=== PATIENT | female | born 1975 | race American Indian/Alaskan Native ===

== ENCOUNTER 2021-09-23 08:14 | Day surgery (SDC) | payer BC, OTHER ==
[2021-09-19 13:02] LABS: Hematocrit 25.8 % (30.3-42.9); Hemoglobin 7.8 gm/dl (10.1-14.3); Mean Corpuscular HGB Conc 30 % (30-34); Platelet Count 579 K/mm3 (140-440); Red Blood Count 3.91 M/mm3 (3.65-5.03)
[2021-09-19 14:07] LABS: Mean Corpuscular Volume 66 fl (79-97); Red Cell Distribution Width 29.3 % (13.2-15.2)
--- NOTE | 2021-09-21 16:37 | Short Stay Summary ---
Short Stay Documentation Date of service: 09/23/21 Narrative H&P: This is a 46 years old female who presents with menstrual disorder. She complains of irregular menses, heavy bleeding, clotting and history of fibroids. Menstrual flow lasts > 7 days. She states she has been bleeding as such since 11/2020. She received 1uPRBC 09/09/2021 for severe anemia. She continues to bleed heavy with only ~3 days/month when she does not bleed. Her evaluation reveals a large prolapsed fibroid Past History : 2 Term Births: 2 Living Children: 2 # 1 Delivery date: 1996 Comments: [id number] [employer] History Operations: Cholecystectomy Abnormal PAP: negative Infection History HIV Risk Eval: no Personal hx. of genital herpes: yes Hx of STD: HSV Active Medications: MULTIVITAMINS ORAL CAPSULE (MULTIPLE VITAMIN) MIRENA (52 MG) INTRAUTERINE DEVICE (LEVONORGESTREL IUD) Current Allergies (reviewed today): No known allergies Past Medical History: Environmental allergies: trees, mold, pet dander Anemia Past Surgical History: Cholecystectomy Family History Summary: Reviewed history Last on 09/11/2021 and no changes required:09/21/2021 Other Family Member - Has No Family History of Uterine Cancer - Entered On: 04/09/2019 Other Family Member - Has No Family History of Small Bowel Cancer - Entered On: 04/09/2019 Other Family Member - Has No Family History of Stomach Cancer - Entered On: 04/09/2019 Other Family Member - Has No Family History of Pancreatic Cancer - Entered On: 04/09/2019 Other Family Member - Has No Family History of Ovarvian Cancer - Entered On: 04/09/2019 Other Family Member - Has No Family History of Kidney/Urinary Tract Cancer - Entered On: 04/09/2019 Other Family Member - Has No Family History of Spontaneous DVT-PE - Entered On: 04/09/2019 Other Family Member - Has No Family History of Colon Cancer - Entered On: 04/09/2019 Other Family Member - Has No Family History of Brain Cancer - Entered On: 04/09/2019 Other Family Member - Has No Family History of Breast Cancer - Entered On: 04/09/2019 Other Family Member - Has No Family History of Biliary Tract Cancer - Entered On: 04/09/2019 General Comments - FH: No Family History of Breast Cancer No Family History of Colon Cancer No Family History of Ovarvian Cancer No Family History of DVT/PE on OCP Social History: Reviewed history from 04/07/2019 and no changes required: Patient is Smoking History: Patient has never smoked. Risk Factors: Smoked Tobacco Use: Never smoker Smokeless Tobacco Use: Never Passive Smoke Exposure: no HIV High Risk Behavior: no Exercise: no Seatbelt Use: 100 % Alcohol Use: yes Type: OCC Drinks per day: social Drug Use: no Previous Tobacco Use: Signed On 09/11/2021 Smoked Tobacco Use: Never smoker Smokeless Tobacco Use: Never Passive Smoke Exposure: no HIV High Risk Behavior: no Exercise: no Seatbelt Use: 100 % Alcohol Use: yes Type: OCC Drinks per day: social Drug Use: no Physical Exam Appearance: well developed, well nourished, no acute distress Other Exams Lungs: no rales, rhonchi, or wheezes Heart: S1, S2, no murmur, rub, or gallop Impression & Recommendations: Problem # 1: Fibroids of uterus, Submucosal (ICD-218.0) (AEO20-D48.0) Prolapsed fibroid, she presents now for removal of prolapsed fibroid, hysteroscopy with uterine curettage .aoip Consent reviewed and signed . Possible laparoscopy or laparotomy explained to patient. The risks and alternatives for this surgery were reviewed with the patient. She was informed of possible bleeding, infection, injury to bowel, bladder, ureters or other adjacent organs. The patient was instructed/informed the following: The normal length of hospital stay for this procedure. Nothing to eat or drink after midnight the evening prior to surgery. Pre-op instruction sheets given. Infection precautions reviewed, patient to call for any signs or symptoms of infection. The usual discomforts associated with this procedure were detailed. Proper use of pain medicines was reviewed. Patient was given ample opportunity to have all her questions answered before signing informed consent. 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 H&P has been reviewed. No interval changes. - Allergies and Medications Current Medications: Allergies tree nut Allergy (Verified 09/16/21 16:29) Anaphylaxis Home Medications Medication Instructions Recorded Confirmed Last Taken Type Multivitamin [Multiple Vitamins] 1 each PO DAILY 09/16/21 09/16/21 Unknown History Active Medications Cefazolin Sodium (Ancef/Sterile Water 2 Gm/20 Ml) 2 gm in 20 mls @ 80 mls/hr IV PREOP NR; Protocol - Brief post op/procedure progress note Date of procedure: 09/23/21 Pre-op diagnosis: Menometrorrhagia, anemia, prolapse fibroid, IUD Post-op diagnosis: other (Menometrorrhagia, anemia, prolapse fibroid) Procedure: Operative hysteroscopy with myomectomy uterine curettage Anesthesia: MAC Findings: Approximately 2 cm prolapsed uterine fibroid grossly normal uterine cavity no IUD was visualized Surgeon: NESTOR JARAMILLO Estimated blood loss: minimal Pathology: list (Fibroid and endometrial tissue) Specimen disposition: to lab Condition: stable - Hospital course Hospital course: Normal - Disposition Condition at discharge: Good Disposition: 01 HOME / SELF CARE / HOMELESS - Discharge Diagnoses (1) Excessive and frequent menstruation with irregular cycle Status: Acute (2) Fibroid Status: Acute (3) Anemia Status: Acute Short Stay Discharge Plan Activity: other (No sex. Ambulate frequently.) Weight Bearing Status: Full Weight Bearing Diet: regular (Eat small meals frequently. Avoid spicy high-fat high sodium foods. Drink approximately 100 ounces of water a day and void every 1-2 hours) Special Instructions: no heavy lifting (Greater than 25 pound) Follow up with: TAVO MCKAY MD [Primary Care Provider] - 7 Days NESTOR JARAMILLO MD [Staff Physician] - (As scheduled)
[~2021-09-23 08:14] MED LIST: ceFAZolin/Water 2 GM/20 ML 2 GM/20 ML SYRINGE IV NR
[2021-09-23] MEDS ORDERED: MAGNESIUM OXIDE 400 MG TAB PO NR (08:46)
[2021-09-23] MEDS ORDERED: ACETAMINOPHEN 500 MG TAB PO NR (08:46)
[2021-09-23] MEDS ORDERED: ONDANSETRON 4 MG/2 ML INJ IV PRN (08:47)
[2021-09-23] MEDS ORDERED: HYDROmorphone 1 MG/1 ML INJ IV PRN ×2 (08:47)
--- NOTE | 2021-09-23 08:48 | Anesthesia Day of Surgery ---
Anesthesia Day of Surgery - Day of Surgery Patient Examined: Yes Patient H&P Reviewed: Yes Patient is NPO: Yes
--- NOTE | 2021-09-23 08:49 | Anesthesia Consultation ---
Anesthesia Consult and Med Hx Date of service: 09/23/21 - Airway Anesthetic Teeth Evaluation: Chipped, Crowns ROM Head & Neck: Adequate Mental/Hyoid Distance: Adequate Mallampati Class: Class I Intubation Access Assessment: Good - Pre-Operative Health Status ASA Pre-Surgery Classification: ASA2 Proposed Anesthetic Plan: General - Pulmonary Hx Smoking: No Hx Sleep Apnea: No - Central Nervous System Hx Psychiatric Problems: No - Gastrointestinal Hx Gastroesophageal Reflux Disease: Yes (Heartburn when eats tomatoes before bed) - Hematic Hx Anemia: Yes (7.8/25.8) Hx Sickle Cell Disease: No - Other Systems Hx Alcohol Use: Yes (Occas) Hx Cancer: No Hx Obesity: Yes - Additional Comments Anesthesia Medical History Comments: Got one [facility] [id number]
[2021-09-23] MEDS ORDERED: LACTATED RINGERS 1,000 ML IV SCH (09:00)
[2021-09-23] MEDS ORDERED: MIDAZOLAM 2 MG/2 ML INJ IV NR (09:00)
[2021-09-23] MEDS ORDERED: CELECOXIB 200 MG CAP PO NR (09:00)
[2021-09-23] MEDS ORDERED: propofoL 200 MG/20 ML VIAL IV ONE (11:56)
[2021-09-23] MEDS ORDERED: HYDROmorphone 1 MG/1 ML INJ ONE (11:56)
[2021-09-23] MEDS ORDERED: LIDOCAINE MPF (2%) 20 MG/1 ML VIAL 5 ML ONE (11:56)
[2021-09-23] MEDS ORDERED: dexAMETHasone 20 MG/5 ML VIAL ONE (13:12)
[2021-09-23] MEDS ORDERED: FERRIC SUBSULFATE TOPICAL SOLN 8 ML TP ONE ×2 (13:42→13:44)
[2021-09-23] MEDS ORDERED: ONDANSETRON 4 MG/2 ML INJ ONE (13:42)
[2021-09-23] MEDS ORDERED: SODIUM CHLORIDE 0.9% IRRIG SOLN 2000 ML IR ONE (13:44)
[2021-09-23] MEDS ORDERED: KETOROLAC 30 MG/1 ML INJ ONE (14:06)
--- NOTE | 2021-09-23 14:33 | Operative Report ---
Operative Report Operative Report: Date: 09/23/2021 PREOPERATIVE DIAGNOSES: 1. Menometrorrhagia 2. Prolapsed uterine fibroid 3. Anemia 4. Body mass index 33.4 kg/m 5. IUD to be removed POSTOPERATIVE DIAGNOSES: 1. Menometrorrhagia 2. Prolapsed uterine fibroid 3. Anemia 4. Body mass index 33.4 kg/m 5. No IUD visualized in the uterine cavity PROCEDURE PERFORMED: 1. Operative hysteroscopy. 2. Uterine curettage (D&C) 3. Myomectomy ANESTHESIA: [] ESTIMATED BLOOD LOSS: Less than minimal cc. INDICATIONS: This is a 46-year-old female that presents above diagnoses. PROCEDURE: The patient was seen in the preoperative suite. Expected procedure and postoperative course discussed with her. She was taken to the operative suit e where MAC was performed. She was placed in a dorsal lithotomy position. . A bimanual exam was done, the uterus was found to be 12 weeks. She was prepped and draped in the normal sterile fashion. Timeout was performed. Her bladder was drained with the red Wtaers catheter which produced approximately 50 cc of clear yellow urine. The cervix and vagina were grossly normal with no obvious masses or deformities. A bivalve operative speculum was placed in the vagina and the anterior lip of the cervix was grasped with the ring forcep. The uterus was sounded to ~8 cm. An approximately 2 cm prolapsed fibroid was noted protruding from the cervix. The fibroid was grasped with a ring forcep and twisted off at its base and sent to pathology. The cervix was found to be approximately 1 cm dilated. Operative hysteroscope was introduced. Under direct visualization, the ostia were within normal limits. The endometrial lining appeared thin, however, there was no obvious evidence of malignancy. No evidence of an IUD was noted the hysteroscope was removed and a small sharp curette was placed intrauterine very carefully using anterior wall for guidance. Endometrial curettings were obtained. The hysteroscope was reintroduced and the base of the removed fibroid was excised with the MyoSure device. Bleeding from the base occurred after excision that was made hemostatic with Monsel solution. The endometrial sampling was placed on Telfa pad and sent to Pathology for evaluation, permanent. The hysteroscope was introduced again, no evidence of perforation was noted. At this point procedure was ended. The ring forcep and speculum were removed. The cervix was found to be hemostatic. Counts were correct. Patient was taken to the PACU stable. Distention fluid: Normal saline Deficit: 50 mL
[2021-09-23 15:03] VITALS: BP 119/75
--- NOTE | 2021-09-23 17:12 | Post Anesthesia Evaluation ---
- Post Anesthesia Evaluation Patient Participated: Yes Airway Patent: Yes Stable Respiratory Function: Yes Nausea/Vomiting: No Temp > 96.8F: Yes Pain Manageable: Yes Adequeate Hydration: Yes Anesthesia Complications: No Block Receding Appropriately: Not Applicable Patient on Ventilator: No
== END 2021-09-23 15:30 | disposition home or self-care (01) ==
LOC: OR 08:14
PROVIDERS: ATTEND Obstetrics & Gynecology
DX: N92.1 Excessive and frequent menstruation with irregular cycle (principal); Z20.822 Contact with and (suspected) exposure to COVID-19; D64.9 Anemia, unspecified
CPT/HCPCS: 36415; 58558; 81025; 85027; 88305; C1782; J0690; J1100; J1170; J1885; J2250; J2405; J2704; J3490; J7120; U0003

== ENCOUNTER 2021-12-09 07:18 | Observation (INO) | payer BC ==
[2021-12-03 12:57] LABS: Mean Corpuscular HGB Conc 30 % (30-34); Platelet Count 562 K/mm3 (140-440); Red Blood Count 4.23 M/mm3 (3.65-5.03)
[2021-12-03 12:58] LABS: Hematocrit 28.7 % (30.3-42.9); Hemoglobin 8.5 gm/dl (10.1-14.3); Mean Corpuscular Volume 68 fl (79-97); Red Cell Distribution Width 20.6 % (13.2-15.2)
[2021-12-03 14:37] LABS: Basophils % (Manual) 0 % (0.0-1.8); Total Cells Counted 100
[2021-12-03 14:38] LABS: Anisocytosis 1+; Hypochromasia 2+; Ovalocytes 1+; Platelet Estimate Consistent w Auto; Poikilocytosis 1+
--- NOTE | 2021-12-08 08:40 | History and Physical Report ---
History of Present Illness Date of examination: 12/03/21 Chief complaint: Excessive and frequent menstruation with irregular cycle, fibroids, anemia History of present illness: This is a 46 years old female who presents with menstrual disorder. She complains of irregular menses, heavy bleeding, clotting and history of fibroids. Menstrual flow lasts > 7 days. She states she has been bleeding as such since 11/2020. She received 1uPRBC 09/09/2021 for severe anemia. She continues to bleed heavy with only ~3 days/month when she does not bleed. Menstrual History: LMP (date): 11/25/2021 Current Method of Contraception: OCP Past History : 2 Term Births: 2 Living Children: 2 # 1 Delivery date: 1996 Comments: svdx2 [employer] History Operations: Cholecystectomy D&C: (09/23/2021) Hysteroscopy:myomectomy(09/23/2021) Abnormal PAP: negative Infection History HIV Risk Eval: no Personal hx. of genital herpes: yes Hx of STD: HSV Active Medications (reviewed today): levonorgestrel-ethinyl estrad 0.1-20 mg-mcg tablet (levonorgestrel-ethinyl es trad) Take 1 tablet once a day multivitamin tablet (multivitamin) Current Allergies (reviewed today): No known allergies Past Medical History: Reviewed history from 10/01/2021 and no changes required: Environmental allergies: trees, mold, pet dander Anemia Past Surgical History: Reviewed and updated today: Cholecystectomy D&C: (09/23/2021) Hysteroscopy:myomectomy(09/23/2021) Family History Summary: Reviewed history Last on 09/19/2021 and no changes required:12/08/2021 Other Family Member - Has No Family History of Uterine Cancer - Entered On: 04/09 Other Family Member - Has No Family History of Small Bowel Cancer - Entered On: 04/09/2019 Other Family Member - Has No Family History of Stomach Cancer - Entered On: 04/09/2019 Other Family Member - Has No Family History of Pancreatic Cancer - Entered On: 04/09/2019 Other Family Member - Has No Family History of Ovarvian Cancer - Entered On: 04/09/2019 Other Family Member - Has No Family History of Kidney/Urinary Tract Cancer - Entered On: 04/09/2019 Other Family Member - Has No Family History of Spontaneous DVT-PE - Entered On: 04/09/2019 Other Family Member - Has No Family History of Colon Cancer - Entered On: 04/09/2019 Other Family Member - Has No Family History of Brain Cancer - Entered On: 04/09/2019 Other Family Member - Has No Family History of Breast Cancer - Entered On: 04/09/2019 Other Family Member - Has No Family History of Biliary Tract Cancer - Entered On: 04/09/2019 General Comments - FH: No Family History of Breast Cancer No Family History of Colon Cancer No Family History of Ovarvian Cancer No Family History of DVT/PE on OCP Social History: Reviewed history from 04/07/2019 and no changes required: Patient is Smoking History: Patient has never smoked. Risk Factors: Smoked Tobacco Use: Never smoker Smokeless Tobacco Use: Never Passive Smoke Exposure: no HIV High Risk Behavior: no Exercise: no Seatbelt Use: 100 % Alcohol Use: yes Type: OCC Drinks per day: social Drug Use: no Previous Tobacco Use: Signed On - 10/08/2021 Smoked Tobacco Use: Never smoker Smokeless Tobacco Use: Never Passive Smoke Exposure: no HIV High Risk Behavior: no Exercise: no Seatbelt Use: 100 % Alcohol Use: yes Type: OCC Drinks per day: social Drug Use: no Physical Exam Appearance: well developed, well nourished, no acute distress Other Exams Lungs: no rales, rhonchi, or wheezes Heart: S1, S2, no murmur, rub, or gallop Impression & Recommendations: Problem # 1: Fibroids of uterus, Submucosal (ICD-218.0) (ZSQ86-R52.0) Her updated medication list for this problem includes: Levonorgestrel-ethinyl Estrad 0.1-20 Mg-mcg Tablet (Levonorgestrel-ethinyl estrad) ..... Take 1 tablet once a day Diagnosis explained to patient . Discussed with patient various medical, surgical and radiological therapies common for treatment including, but not limited to, myomectomy, hysterectomy and uterine artery embolization. Discussed risks and benefits of laparotomy, laparoscopy, vaginal and robotic assisted approaches for hysterectomies. Patient desires definitive treatment in the form of robot assisted laparoscopic total hysterectomy. The risks and alternatives for this surgery were reviewed with the patient. She was informed of the risks of the surgery including, but not limited to, pain, infection, bleeding possibly heavy enough to require a blood transfusion with associated risks of infections (hepatitis and HIV) and transfusion reactions, possible damage to bowel, bladder or ureter(s) and surrounding organs. She was also informed of slight increased risk for vaginal cuff breakdown with the robotic approach. Patient understands that this surgery will make her sterile. Indic ations to abort a robotic/laparoscopic procedure and perform an open procedure were explained.She desires ovarian conservation. She was informed she may require surgery later to have her ovaries removed for a benign or malignant condition. Patient understands if her ovaries are removed she will become menopausal. Patient advised the small risks of spreading of malignancy if morcellation is required during the surgery patient understands and approves performing if necessary. Questions answered. Consent reviewed and signed The patient was instructed/informed the following: The normal length of hospital stay for this procedure. Nothing to eat or drink after midnight the evening prior to surgery.. Pre-op instruction sheets given. Wound care instructions given. Problem # 2: Excessive and frequent menstruation with irregular cycle (ICD- 626.6) (OIH47-G77.1) Her updated medication list for this problem includes: Levonorgestrel-ethinyl Estrad 0.1-20 Mg-mcg Tablet (Levonorgestrel-ethinyl estrad) ..... Take 1 tablet once a day Multivitamin Tablet (Multivitamin) Problem # 3: Anemia secondary to blood loss (chronic) (ICD-280.0) (YTH45-V18.0) Medications and Allergies Allergies Allergy/AdvReac Type Severity Reaction Status Date / Time tree nut Allergy Severe Anaphylaxis Verified 12/01/21 13:04 MOLE AdvReac Severe Anaphylaxis Uncoded 12/01/21 13:04 PET DANDER AdvReac Severe Anaphylaxis Uncoded 12/01/21 13:04 Home Medications Medication Instructions Recorded Confirmed Last Taken Type No Known Home Medications [No 12/01/21 12/01/21 Unknown History Reported Home Medications] Active Meds: Active Medications Acetaminophen (Acetaminophen 500 Mg Tab) 1,000 mg PO ONCE ONE Stop: 12/09/21 06:01 Celecoxib (Celecoxib 200 Mg Cap) 200 mg PO PREOP NR Stop: 12/09/21 23:59 Fentanyl (Fentanyl 100 Mcg/2 Ml Inj) 100 mcg IV ONCE ONE Stop: 12/09/21 06:01 Lactated Ringer's (Lactated Ringers) 1,000 mls @ 125 mls/hr IV DIRECT LAMBERT Cefazolin Sodium (Ancef/Sterile Water 2 Gm/20 Ml) 2 gm in 20 mls @ 80 mls/hr IV PREOP NR; Protocol Magnesium Oxide (Magnesium Oxide 400 Mg Tab) 400 mg PO ONCE ONE Stop: 12/09/21 06:01 Methocarbamol (Methocarbamol 750 Mg Tab) 1,500 mg PO ONCE ONE Stop: 12/09/21 06:01 Midazolam HCl (Midazolam 2 Mg/2 Ml Inj) 2 mg IV PREOP NR Stop: 12/09/21 23:59 Exam Vital Signs Temp Pulse Resp BP Pulse Ox 98.9 F 89 20 152/94 98 12/03/21 12:35 12/03/21 12:35 12/03/21 12:35 12/03/21 12:35 12/03/21 12:35 Results - Labs 12/03/21 12:40 Assessment and Plan - Patient Problems (1) Excessive and frequent menstruation with irregular cycle Status: Acute (2) Fibroid Status: Acute (3) Anemia Status: Acute
[~2021-12-09 07:18] MED LIST changes: +ACETAMINOPHEN 500 MG TAB PO ONE; +ACETAMINOPHEN 500 MG TAB PO SCH; +CELECOXIB 200 MG CAP PO NR; +LACTATED RINGERS 1,000 ML IV SCH; +MAGNESIUM OXIDE 400 MG TAB PO ONE; +MAGNESIUM OXIDE 400 MG TAB PO SCH; +MIDAZOLAM 2 MG/2 ML INJ IV NR; +SCOPOLAMINE TRANSDERMAL PATCH 72 HR TD NR; +fentaNYL 100 MCG/2 ML INJ IV ONE; +fentaNYL 100 MCG/2 ML INJ IV SCH
--- NOTE | 2021-12-09 08:05 | Anesthesia Consultation ---
Anesthesia Consult and Med Hx Date of service: 12/09/21 - Airway Anesthetic Teeth Evaluation: Good ROM Head & Neck: Adequate Mental/Hyoid Distance: Adequate Mallampati Class: Class II Intubation Access Assessment: Probably Good - Pre-Operative Health Status ASA Pre-Surgery Classification: ASA2 Proposed Anesthetic Plan: General Nerve Block: tap - Pulmonary Hx Smoking: No Hx Respiratory Symptoms: No - Cardiovascular System Hx Hypertension: No - Central Nervous System CVA: No - Gastrointestinal Hx Gastroesophageal Reflux Disease: Yes (diet-controlled) - Endocrine Hx Renal Disease: No Hx Liver Disease: No Hx Insulin Dependent Diabetes: No Hx Non-Insulin Dependent Diabetes: No Hx Thyroid Disease: No - Hematic Hx Anemia: Yes (hx blood transfusions) - Other Systems Hx Obesity: Yes (BMI 33) - Additional Comments Anesthesia Medical History Comments: No hx anesthetic complications.
[2021-12-09] MEDS ORDERED: HYDROmorphone 0.5 MG/0.5 ML INJ IV PRN (08:06)
[2021-12-09] MEDS ORDERED: ONDANSETRON 4 MG/2 ML INJ IV PRN ×2 (08:06→17:23)
--- NOTE | 2021-12-09 08:06 | Anesthesia Day of Surgery ---
Anesthesia Day of Surgery - Day of Surgery Patient Examined: Yes Patient H&P Reviewed: Yes Patient is NPO: Yes
[2021-12-09] MEDS ORDERED: BUPIVACAINE/PF (0.25%) 2.5 MG/ML 30 ML VIAL INFILTRATI ONE (08:13)
[2021-12-09] MEDS ORDERED: dexAMETHasone 4 MG/ML VIAL ONE (08:13)
[2021-12-09] MEDS ORDERED: NEOMY 40 MG/POLYMYXIN B 200,000 UNITS/ML (GU) AMPULE IR ONE ×2 (12:41→14:37)
[2021-12-09] MEDS ORDERED: propofoL 200 MG/20 ML VIAL IV ONE (12:56)
[2021-12-09] MEDS ORDERED: HYDROmorphone 1 MG/1 ML INJ ONE (12:56)
[2021-12-09] MEDS ORDERED: ePHEDrine SULFATE 50 MG/1 ML INJ ONE (13:00)
[2021-12-09] MEDS ORDERED: ROCURONIUM 50 MG/5 ML INJ IV ONE (14:25)
[2021-12-09] MEDS ORDERED: ONDANSETRON 4 MG/2 ML INJ ONE (14:25)
[2021-12-09] MEDS ORDERED: LACTATED RINGERS 1,000 ML ONE (14:25)
[2021-12-09] MEDS ORDERED: dexAMETHasone 20 MG/5 ML VIAL ONE (14:25)
[2021-12-09] MEDS ORDERED: LIDOCAINE MPF (2%) 20 MG/1 ML VIAL 5 ML ONE (14:25)
[2021-12-09] MEDS ORDERED: SODIUM CHLORIDE 0.9% IRR 1,500 ML BOTTLE IR ONE (14:38)
[2021-12-09] MEDS ORDERED: NEOSTIGMINE 10MG/10 ML INJ MDV ONE (15:22)
[2021-12-09] MEDS ORDERED: GLYCOPYRROLATE 0.4 MG/2 ML INJ ONE (15:22)
--- NOTE | 2021-12-09 15:45 | Operative Report ---
Operative Report Operative Report: Date: 12/09/2021 Preoperative diagnosis: 1. Excessive and frequent menstruation with irregular cycle 2. Uterine fibroid 3. Body mass index of 32.9 kg/m 4. Anemia Postoperative diagnosis: 1. Excessive and frequent menstruation with irregular cycle 2. Uterine fibroid 3. Body mass index of 32.9 kg/m 4. Anemia Procedure: 1. Robotic-assisted laparoscopic total hysterectomy with bilateral salpingectomy Surgeon: Tasha Kilpatrick MD [employer] Mig Welder: Pierce French Anesthesiologist: Dr. Fidelina Schwarz Anesthesia: General endotracheal anesthesia EBL: Approximately 50 mL Findings: EUA: Uterus palpated to approximately 8 weeks. Uterus was sounded to 8 cm. Grossly normal tubes and ovaries. Procedure: Patient was taken to the OR and placed in the supine position. General anesthesia was induced and an oral gastric tube was placed. Her neck and head were placed on foam support. Foam eye protection with goggles were secured in place. Then foam face protection was placed and secured. Foam shoulder pads were then positioned on her shoulders for Trendelenburg positioning. She was then placed in dorsolithotomy position. Exam under anesthesia as above. The abdomen and vagina were then prepped and draped in the usual sterile fashion. Timeout was performed. A Quinteros catheter was inserted into the bladder with drainage of clear yellow urine. The operative speculum was introduced into the vagina and the anterior lip of the cervix was grasped w ith single-toothed tenaculum. The uterus was sounded to 8 cm. The cervix was progressively dilated to allow the large V care uterine manipulator. The bulb of the manipulator was inflated and the speculum and tenaculum were removed. The cup of the manipulator was placed around the cervix and the blue occluder of the manipulator was properly positioned in the vagina and secured. A laparotomy sponge that was saturated with a solution of polymyxin and saline was placed in the vagina to ensure pneumoperitoneum. Sterile gloves were placed and attention was turned to the abdomen. A 10 mm midline vertical supraumbilical incision was made approximately 10 cm superior to the elevated fundus of the uterus. A 10-12 mm trocar with the laparoscope and camera attached was introduced through this incision under direct visualization. The abdomen was insufflated. No obvious bowel, bladder, ureteral, or major vascular injury was noted. The patient was then placed in steep Trendelenburg position and the following trochars were placed under direct visualization: 8 mm robotic trochars were placed through incisions made in the bilateral midclavicular lower abdominal region approximately 10 cm lateral to the midline incision, and a 5 mm trocar was placed through an incision made in the right lower lateral pelvis. The 10 mm laparoscope was then replaced by a 5 mm laparoscope that was placed through the 5 millimeter lateral trocar. The 12 mm trocar was then removed and the [place] fascial closure device was placed through the incision and a 0 Vicryl was placed through the fascia. Once the suture was secured the 12 mm trocar was reintroduced. Once the trochars were in the appropriate positions, the da Casandra robot system was engaged. The EndoShears and bipolar device was placed through the 8 mm trochars and positioned then attention was turned to the console. The uterus was elevated and bilateral salpingectomy was performed. Each tube was removed through the 5 mm trocar and sent to pathology in separate containers. Then the utero-ovarian ligaments were clamped. cauterized and incised bilaterally using 30 W of energy. Then the round ligaments were clamped, cauterized and incised bilaterally. The anterior leaf of the broad ligament was elevated and with careful blunt and sharp dissection the bladder flap was created and dissected away from the lower uterine segment and cervix. The posterior leaf of the broad ligament was dissected away from the uterine vessels. The cup of the uterine manipulator was palpated both anteriorly and posteriorly. The bladder was further dissected away from the lower uterine segment. The uterine vessels were then clamped and cauterized bilaterally. Blanching of the uterus was then noted. Attention was again turned to the anterior lower uterine segment and the bladder was confirmed to be away from the operative field. Then attention was turned again to the posterior where the cup of the manipulator was palpated and a colpotomy was performed down to the cup. The incision was extended in the lateral position to the uterine vessels that were again clamped and cauterized and incised. Continuing along the cup of the manipulator in a circumferential manner the colpotomy was completed. The uterus and cervix were then removed through the vaginal incision. The pelvis was irrigated with warm normal saline. A moist laparotomy sponge was placed in the vagina to maintain pneumoperitoneum. The vagina cuff was reapproximated using V LOC 180 suture. Then a J stitch was performed to secure the suture. Again the pelvis was copiously irrigated with polymixin in warm normal saline. The laparotomy sponge was removed from the vagina. No obvious evidence of bowel, bladder, ureteral, or major vascular inju ry was noted. Once hemostasis was noted, the instruments were removed, the robot was disengaged. The 12 mm trocar was removed and the fascia was ligated with the 0 Vicryl suture that was placed at the beginning of the procedure. The patient was taken out of Trendelenburg position, the abdomen was desufflated, the remaining trochars were removed. Incisions were reapproximated using 4-0 Monoc ryl in a subcuticular manner. Surgiseal was placed over the other incisions. The vagina was then inspected, the cuff was palpated to be intact and no bleeding was noted and clear yellow urine was draining into the Quinteros bag from the bladder at the end of the procedure. Counts were correct 3. Patient was taken to recovery room in stable condition.
[2021-12-09] MEDS ORDERED: KETOROLAC 30 MG/1 ML INJ IV PRN (16:01)
[2021-12-09] MEDS ORDERED: KETOROLAC 30 MG/1 ML INJ ONE (16:03)
[2021-12-09] MEDS ORDERED: KETOROLAC 30 MG/1 ML INJ IV ONE (17:00)
--- NOTE | 2021-12-09 17:08 | Post Anesthesia Evaluation ---
- Post Anesthesia Evaluation Patient Participated: Yes Airway Patent: Yes Stable Respiratory Function: Yes Nausea/Vomiting: No Temp > 96.8F: Yes Pain Manageable: Yes Adequeate Hydration: Yes Anesthesia Complications: No
[2021-12-09] MEDS ORDERED: METOCLOPRAMIDE 10 MG/2 ML INJ IV PRN (17:23)
[2021-12-09] MEDS ORDERED: oxyCODONE /ACETAMINOPHEN 5-325MG TAB PO PRN (17:23)
[2021-12-09] MEDS ORDERED: MORPHINE 2 MG/1 ML INJ IV PRN (17:23)
[2021-12-09] MEDS ORDERED: METOCLOPRAMIDE 10 MG TAB PO PRN (17:23)
[2021-12-09] MEDS ORDERED: MORPHINE 4 MG/1 ML INJ IV PRN (17:23)
[2021-12-09] MEDS ORDERED: ONDANSETRON 4 MG ODT TAB PO PRN (17:23)
[2021-12-09] MEDS: ceFAZolin/NS 1 GM/50 ML 1 GM/50 ML BAG IV SCH (18:45)
[2021-12-09] MEDS: SODIUM CHLORIDE 0.9% 1000 ML 1,000 ML IV SCH (19:00)
[2021-12-09] MEDS: ACETAMINOPHEN 325 MG TAB PO SCH (20:04)
[2021-12-09] MEDS: FAMOTIDINE 20 MG/2 ML INJ IV SCH (22:29)
[2021-12-09] MEDS: KETOROLAC 30 MG/1 ML INJ IV SCH (23:36)
[2021-12-10] MEDS: ceFAZolin/NS 1 GM/50 ML 1 GM/50 ML BAG IV SCH (01:26)
[2021-12-10] MEDS: ACETAMINOPHEN 325 MG TAB PO SCH (03:16)
[2021-12-10] MEDS: SODIUM CHLORIDE 0.9% 1000 ML 1,000 ML IV SCH (03:18)
[2021-12-10 08:47] LABS: Hematocrit 26.6 % (30.3-42.9)
--- NOTE | 2021-12-10 09:53 | Discharge Summary ---
Providers - Providers Date of Admission: 12/09/21 15:50 Date of discharge: 12/10/21 Attending physician: NESTOR JARAMILLO Primary care physician: TAVO MCKAY Hospitalization Reason for admission: RALTH/BS Condition: Good Procedures: RALTH/BS Hospital course: Normal Disposition: 01 HOME / SELF CARE / HOMELESS Final Discharge Diagnosis (Prints w/discharge instructions): RALTH/BS - Discharge Diagnoses (1) Excessive and frequent menstruation with irregular cycle Status: Resolved (2) Fibroid Status: Resolved (3) Anemia Status: Chronic Qualifiers: Iron deficiency anemia type: chronic blood loss Core Measure Documentation - Palliative Care Palliative Care/ Comfort Measures: Not Applicable - Core Measures Any of the following diagnoses?: none Exam - Constitutional Vitals: Temp Pulse Resp BP Pulse Ox 98.5 F 70 20 118/71 100 12/10/21 08:03 12/10/21 08:03 12/10/21 08:03 12/10/21 08:03 12/10/21 08:03 General appearance: Present: no acute distress - Neck Neck: Present: supple - Respiratory Respiratory effort: normal Respiratory: bilateral: CTA - Cardiovascular Rhythm: regular - Extremities Extremities: no ischemia, No edema - Abdominal General gastrointestinal: Present: soft, non-tender, non-distended, normal bowel sounds - Integumentary Integumentary: Present: clear, warm, dry (Incision c/d/i) - Musculoskeletal Musculoskeletal: strength equal bilaterally - Psychiatric Psychiatric: appropriate mood/affect, intact judgment & insight, memory intact, cooperative - Neurologic Neurologic: CNII-XII intact Plan Activity: other (Ambulate approximately 1 mile on her property a day. Void every hour. No sex. No driving. Use your incentive spirometer every hour while awake as instructed.) Weight Bearing Status: Full Weight Bearing Diet: regular (Eat small meals frequently. Drink approximately 100 ounces of water a day. Avoid high salt, high fat, spicy foods.) Wound: open to air, keep clean and dry Special Instructions: no heavy lifting (Greater than 15 pounds a day.) Additional Instructions: Continue taking your oral iron supplement once a day Follow up with: TAVO MCKAY MD [Primary Care Provider] - 7 Days NESTOR JARAMILLO MD [Staff Physician] - (As scheduled) Prescriptions: Ibuprofen [Motrin 800 MG tab] 800 mg PO Q8H PRN #30 tablet PRN Reason: Pain, Moderate (4-6) oxyCODONE /ACETAMINOPHEN [Percocet 5/325 mg] 2 tab PO Q6H PRN #7 tablet PRN Reason: Pain, Moderate (4-6)
[2021-12-10] MEDS: FAMOTIDINE 20 MG/2 ML INJ IV SCH (10:00)
[2021-12-10] MEDS: KETOROLAC 30 MG/1 ML INJ IV SCH (10:01)
[2021-12-10] MEDS ORDERED: IBUPROFEN 800 MG TAB PO PRN (15:52)
[2021-12-10 16:46] VITALS: BP 138/76
== END 2021-12-10 16:15 | disposition home or self-care (01) ==
LOC: OR 07:18 → OB 15:50
PROVIDERS: ADMIT Obstetrics & Gynecology; ATTEND Obstetrics & Gynecology
DX: N92.1 Excessive and frequent menstruation with irregular cycle (principal); Z20.822 Contact with and (suspected) exposure to COVID-19; D25.9 Leiomyoma of uterus, unspecified; D64.9 Anemia, unspecified; Z90.710 Acquired absence of both cervix and uterus; Z68.32 Body mass index [BMI] 32.0-32.9, adult; Z90.49 Acquired absence of other specified parts of digestive tract; Z79.899 Other long term (current) drug therapy; Z98.890 Other specified postprocedural states
CPT/HCPCS: 36415; 58552; 64488; 81025; 85014; 85018; 85025; 86850; 86900; 86901; 86920; 88302; 88307; 96365; 96366; 96375; 96376; G0378; J0690; J1100; J1170; J1815; J1885; J2250; J2704; J2710; J3010; J3490; J7030; J7120; S2900; U0003; 64450; 85007; 88305; J2405